=== PATIENT | male | born 1960 | race Caucasian/White ===

== ENCOUNTER 2016-11-22 05:07 | Day surgery (SDC) | payer BC ==
[2016-11-19 12:07] LABS: HEMATOCRIT 45.8 % (42.0-54.0); MCH 34.2 pg (26.0-34.0); MCHC 34.9 g/dL (31.0-37.0); MCV 97.9 fL (80.0-100.0); MEAN PLATELET VOLUME 10.8 fL (7.4-10.4); RBC 4.68 10x6/uL (4.20-6.10); RDW 13.7 % (11.5-14.5)
[~2016-11-22] VITALS: Ht 175.3 cm; Wt 96.2 kg
[~2016-11-22 05:07] MED LIST: OMEPRAZOLE20 M1 PO; PRAVASTATIN SOD10 MG PO; PRINIVIL20 MG PO
[2016-11-22 07:08] VITALS: BP 145/80; Ht 175.3 cm; Wt 96.2 kg
[2016-11-22] MEDS ORDERED: HYDROCODON-ACE1 EAC7 PO (10:28)
[2016-11-22] MEDS ORDERED: FUROSEMIDE20 MG PO (10:29)
[2016-11-22] MEDS ORDERED: FLOMAX0.4 MG PO (10:29)
--- NOTE | 2016-11-22 14:17 | NUR ---
1210-IV DISCONTINUED WITH CATHETER INTACT 1235-DISCHARGE INSTRUCTIONS GIVEN AND WENT OVER. PT STATES UNDERSTANDING AND DENIES ANY NEEDS OR CONCERNS AT THIS TIME. PT DENIES ANY QUESTION. PT ESCORTED OUT VIA WHEELCHAIR IN STABLE CONDITION
--- NOTE | 2016-11-22 14:56 | NUR ---
5248 DISCHARGE INSTRUCTIONS REVIEWED WITH PATIENT PER Eran ROYAL RN; VERBALIZED UNDERSTANDING
--- NOTE | 2016-11-23 09:15 | OP ---
PATIENT NAME: JACQUELINE HDZ MEDICAL RECORD: [id number] :62 LOCATION:[facility] ADMISSION DATE: SURGEON: ELIAS DEWEY MD DATE OF OPERATION: 11/22/2016 SURGEON: Elias Dewey M.D. PREOPERATIVE DIAGNOSIS: Bilateral inguinal hernia. POSTOPERATIVE DIAGNOSIS: Bilateral inguinal hernia. PROCEDURE PERFORMED: Laparoscopic bilateral inguinal hernia repair with mesh. ANESTHESIA: General. COMPLICATIONS: None. SPECIMENS: None. Case was clean. OPERATIVE COURSE: After consent was obtained, the patient was taken to the operating room and placed in supine position on the operating table. Next, general anesthesia was given via endotracheal intubation after a timeout was performed to confirm the correct patient and procedure. Thereafter, the abdomen was prepped and draped in typical sterile fashion. Ioban dressing was placed. Local anesthetic was injected just above and to the right side of the umbilicus. A stab incision was made with a 15 blade scalpel. Dissection continued down the level of the external oblique fascia using electrocautery. Local anesthetic was injected below the external oblique fascia. The external oblique fascia was incised with a 15 blade scalpel. The rectus muscle was bluntly using a Shi clamp until when the posterior fascia was identified. An Army-Purvis retractor was placed into the preperitoneal space. The preperitoneal Spacemaker balloon was then inserted in the preperitoneal space and advanced to the pubic tubercle. The balloon was inflated dissecting out the preperitoneal space. The balloon was then removed. The preperitoneal space was then insufflated with CO2. Camera was inserted. The preperitoneal space was inspected. At this time under direct laparoscopic vision, 2 additional 5-mm trocars were placed in the right lateral quadrant, one in the right lower quadrant, one in the left lower quadrant. After administration of local anesthetic, dissection began on the left side. There was an indirect inguinal hernia noted on the left side. The hernia sac was reduced. The peritoneum was dissected inferiorly until the vas deferens was noted to be running medially, the vessels running laterally. The space was dissected off of Wayne's ligaments bilaterally. Next, the inferior epigastrics were identified on the right. The hernia sac was identified in the right side. Again, the indirect inguinal hernia was identified. The hernia sac was reduced. The peritoneum was dissected inferiorly until the vas deferens was noted to be running medially, the vessels running laterally. Once this was complete, the Bard 3DMax light was placed in the mesh. The left side was done first. The mesh was secured to Wayne's ligament medially. A single tack was placed in the rectus muscle anteriorly and superiorly and a single tack was placed laterally. Next, the right-sided mesh was placed in the abdomen. It was again placed immediately and secured to Wayne's ligament with the OptiFix Tacker. Again, a single tack was placed in the rectus muscle anteriorly and superiorly, and a single tack was placed laterally covering both the direct and OPERATIVE REPORT [id number] WILDERJACQUELINE A indirect spaces of both the meshes. Each mesh covered both the direct and indirect space in the inguinal canal. At this time, the preperitoneal space was copiously irrigated and suctioned. Careful attention was paid to hemostasis. At this time, the preperitoneal space was deflated. The trocars were removed. The Spacemaker trocar was removed. The fascia was closed with 0 Vicryl suture in an interrupted [id number] fashion. The trocar sites were closed with 4-0 Monocryl. The incision site was closed with 4-0 Stratafix ____. All skin incisions were reinforced with Mastisol and Steri-Strips. The strap muscles were inspected. Both testicles were noted to be in place within the scrotum. At the end of the case, all needle and instrument counts were correct. No complications occurred. The patient was extubated and transferred to the PACU in stable condition. TRANSINT:[id number] Voice Confirmation ID: [id number] DOCUMENT ID: [id number] ELIAS DEWEY MD at 0915 CC: [id number] DICTATION DATE: 11/22/16 1036 [employer]: 11/22/16 1445 [facility] [place] 11/22/[address] [id number]
== END 2016-11-22 12:35 | disposition home or self-care (01) ==
LOC: D.OPS 05:07 → D.PAN 07:30 → D.OPS 08:30 → D.PAN 08:30 → D.OPS 09:05
PROVIDERS: Anesthesiology
DX: K40.20 Bilateral inguinal hernia, without obstruction or gangrene, not specified as recurrent (principal); I10 Essential (primary) hypertension; K21.9 Gastro-esophageal reflux disease without esophagitis